=== PATIENT | female | born 1980 ===

== ENCOUNTER 2022-08-14 20:34 | Emergency (ER) | payer MEDICAID ==
[2022-08-14] MEDS ORDERED: Ibuprofen 800 MG Tab PO ONE (22:13)
[2022-08-14] MEDS ORDERED: Lidocaine 5% 700 MG Patch TRDERM ONE (23:23)
== END 2022-08-14 23:40 | disposition home or self-care (01) ==
LOC: MW.ED 20:34
DX: M53.3 Sacrococcygeal disorders, not elsewhere classified (principal); Z88.8 Allergy status to other drugs, medicaments and biological substances; W00.0XXA Fall on same level due to ice and snow, initial encounter
CPT/HCPCS: 72220; 99283; A9270